=== PATIENT | male | born 1955 | race Caucasian/White ===

== ENCOUNTER 2022-08-12 17:29 | Emergency (ER) | payer OTHER ==
[~2022-08-12] VITALS: Ht 170.2 cm; Wt 81.6 kg
--- NOTE | 2022-08-12 19:12 | NUR ---
PAUL [phone] [facility] ADMIN
--- NOTE | 2022-08-12 20:47 | NUR ---
[facility] [address] [facility] [address] TEL: [phone]
--- NOTE | 2022-08-12 21:44 | NUR ---
[facility] CALLDE FOR BLS GOING BACK TO SNF PER EDIN ETA 1 HOUR
[2022-08-12 22:21] VITALS: BP 158/83
--- NOTE | 2022-08-12 23:25 | NUR ---
[facility] AT PT'S BEDSIDE TO D/C THE PT BACK TO SNF. VSS ALL BELONGINGS WITH PT.
== END 2022-08-12 22:21 | disposition home or self-care (01) ==
LOC: ER 18:42
DX: S82.831A Other fracture of upper and lower end of right fibula, initial encounter for closed fracture (principal); S80.211A Abrasion, right knee, initial encounter; R51.9 Headache, unspecified; M54.9 Dorsalgia, unspecified; I10 Essential (primary) hypertension; E11.9 Type 2 diabetes mellitus without complications; W01.0XXA Fall on same level from slipping, tripping and stumbling without subsequent striking against object, initial encounter; Y93.89 Activity, other specified; Y92.480 Sidewalk as the place of occurrence of the external cause; Y99.8 Other external cause status
CPT/HCPCS: 70450-TC; 72125-TC; 73564-TC

== ENCOUNTER 2023-08-18 12:24 | Emergency (ER) | payer OTHER ==
[~2023-08-18] VITALS: Ht 162.6 cm; Wt 68.9 kg
[2023-08-18] MEDS: ACETAMINOPHEN ES 500 MG TABLET PO ONE (12:30)
[2023-08-18] MEDS: ONDANSETRON HCL/PF 4 MG/2 ML VIAL IVP ONE (12:30)
[2023-08-18] MEDS: IV NS 0.9% 1,000 ML BAG IV ONE (12:30)
[2023-08-18 12:32] VITALS: TEMP 98.2
[2023-08-18] MEDS ORDERED: ONDANSETRON HCL/PF 4 MG/2 ML VIAL ONE (12:41)
[2023-08-18] MEDS ORDERED: ACETAMINOPHEN ES 500 MG TABLET ONE (12:41)
[2023-08-18 13:01] LABS: BASOPHILS # (AUTO) 0.1 K/uL (0.0-0.2); BASOPHILS % (AUTO) 0.5 % (0.0-2.0); EOSINOPHILS # (AUTO) 0.1 K/uL (0.0-0.7); EOSINOPHILS % (AUTO) 0.8 % (0.0-6.0); HEMATOCRIT 34 % (39-51); HEMOGLOBIN 11.4 g/dL (13.5-17.5); LYMPHOCYTES # (AUTO) 1.2 K/uL (0.8-4.8); MEAN CORPUSCULAR HEMOGLOBIN 30 PG (26.0-33.0); MEAN CORPUSCULAR HGB CONC 34 g/dl (31.0-36.0); MEAN CORPUSCULAR VOLUME 89 fL (80-96); MONOCYTES % (AUTO) 9.6 % (2.0-12.0); NEUTROPHILS # (AUTO) 8.2 K/uL (1.8-8.9); NEUTROPHILS % (AUTO) 78.1 % (43.0-81.0); PLATELET COUNT (AUTO) 189 K/uL (150-450); RED BLOOD CELL COUNT(AUTO) 3.82 MIL/uL (4.5-6.0); RED CELL DISTRIBUTION WIDTH 15.2 % (11.5-15.0); WHITE BLOOD COUNT (AUTO) 10.5 K/uL (4.3-11.0)
[2023-08-18 13:16] LABS: ALBUMIN 3.5 g/dL (3.4-5.0); BILIRUBIN,DIRECT 0.1 mg/dL (0.0-0.2); BILIRUBIN,TOTAL 0.4 mg/dL (0.2-1.0); CREATININE 2.3 mg/dL (0.6-1.3); POTASSIUM 4.2 mmol/L (3.5-5.1); TOTAL PROTEIN, SERUM 7.6 g/dL (6.4-8.2)
[2023-08-18] MEDS: PIPERACILLIN /TAZOBACTAM 3.375 G in IV D5W 50 ML IV ONE (15:00)
[2023-08-18] MEDS: MORPHINE SULFATE INJ 2 MG/ML DISP.SYRIN IV ONE (15:00)
[2023-08-18] MEDS ORDERED: ATOR40TA PO (15:07)
[2023-08-18] MEDS ORDERED: SERT25TA PO (15:07)
[2023-08-18] MEDS ORDERED: TAMS-12 PO (15:07)
[2023-08-18] MEDS ORDERED: MORPHINE SULFATE INJ 4 MG/ML DISP.SYRIN ONE (15:07)
[2023-08-18] MEDS ORDERED: PIPERACI/TAZO 3.375GM/D5W 50ML PB IV ONE (15:07)
[2023-08-18] MEDS ORDERED: LISI-768 PO (15:07)
[2023-08-18] MEDS ORDERED: PANT40TA2 PO (15:07)
[2023-08-18] MEDS ORDERED: INSU100I4 SQ (15:07)
[2023-08-18] MEDS ORDERED: NIFE-35 PO (15:07)
[2023-08-18 19:42] VITALS: BP 133/70; O2SAT 98
== END 2023-08-18 22:10 | disposition short-term general hospital (02) ==
LOC: ER 12:24
DX: K80.50 Calculus of bile duct without cholangitis or cholecystitis without obstruction (principal); K82.8 Other specified diseases of gallbladder; Q62.11 Congenital occlusion of ureteropelvic junction; I12.9 Hypertensive chronic kidney disease with stage 1 through stage 4 chronic kidney disease, or unspecified chronic kidney disease; E11.22 Type 2 diabetes mellitus with diabetic chronic kidney disease; N18.9 Chronic kidney disease, unspecified; E78.5 Hyperlipidemia, unspecified; Z79.4 Long term (current) use of insulin; Z79.899 Other long term (current) drug therapy; Z20.822 Contact with and (suspected) exposure to COVID-19
CPT/HCPCS: 99285; 74176; 96365; 76705; 96375; 96361; 87426; 85025; 80048; 83690; 80076; 36415; 87081; 87040 ×2; J2270; J2405; J2543; J7030; J7060